=== PATIENT | female | born 1995 | race Caucasian/White ===

== ENCOUNTER 2018-02-21 13:33 | Emergency (ER) | payer OTHER ==
--- NOTE | 2018-02-21 14:04 | UC ---
General HPI - HPI Summary HPI Summary: 1. pain in R jaw when bites down. admits to associated popping and clicking. no tooth pain. 2. hx migraines, notes having more frequent migraines but no headache at this time. tx with excedrine migraine and advil but less relief than in past. describes headaches as blurry vision, nausea/vomiting with light and noise sensitivity. no abrupt or worst GOMES's ever. no associated injury or fever. 3. requesting std testing. states not tested in a while. having vaginal odor. prior hx BV and this seems the same. no fever, abdominal pain. - History of Current Complaint Stated Complaint: JAW PAIN, HEADACHE, PERSONAL Time Seen by Provider: 02/21/18 13:56 Hx Obtained From: Patient Associated Signs & Symptoms: Negative: Abdominal Pain, Dysuria, Fever - Allergy/Home Medications Allergies/Adverse Reactions: Allergies Allergy/AdvReac Type Severity Reaction Status Date / Time No Known Allergies Allergy Verified 02/21/18 14:21 Home Medications: Home Medications Citalopram TAB* [CeleXA TAB*] 10 mg PO DAILY 02/21/18 [History Confirmed ] Levothyroxine TAB* [Synthroid TAB*] 50 mcg PO DAILY 02/21/18 [History Confirmed 02/21/18] PMH/Surg Hx/FS Hx/Imm Hx - Additional Past Medical History Additional PMH: anemia, hypothyroid, vitiligo, PCOS, depression. - Family History Known Family History: Positive: None - Social History Occupation: Student Lives: Dormitory/Roommates - Immunization History Vaccination Up to Date: Yes Review of Systems Constitutional: Negative Skin: Negative Eyes: Negative ENT: Negative Respiratory: Negative Cardiovascular: Negative Gastrointestinal: Negative Genitourinary: Vaginal/Penile Discharge Motor: Negative Neurovascular: Negative Musculoskeletal: Negative Neurological: Headache Psychological: Negative Is Patient Immunocompromised?: No All Other Systems Reviewed And Are Negative: Yes Physical Exam Triage Information Reviewed: Yes Appearance: Well-Appearing Vital Signs Reviewed: Yes Eyes: Positive: Conjunctiva Clear ENT: Positive: Pharynx normal, TMs normal. Negative: Nasal congestion, Nasal drainage Dental: Positive: Other: - Tender to palpation over R TMJ. Negative: Percussion Tenderness @, Gross Decay/Caries @, Abscess @ Neck: Positive: Supple, Nontender, No Lymphadenopathy Respiratory: Positive: Lungs clear, Normal breath sounds Cardiovascular: Positive: RRR, No Murmur Abdomen Description: Positive: Nontender, No Organomegaly, Soft Bowel Sounds: Positive: Present Pelvic Exam: Positive: Other - Declined by pt, wants presumptive tx for BV. Musculoskeletal: Positive: ROM Intact Neurological: Positive: Other: - A&O x 3. cn 2-12 grossly intact. 5/5 strength and 2+ reflexes x4. sensation intact x4. steady gait. Psychological: Positive: Age Appropriate Behavior Skin Exam: Normal Diagnostics - Laboratory Diagnostic Studies Completed/Ordered: urine GC/chlamydia and syphilis testing all pending Course/Dx - Course Course Of Treatment: pt declined pelvic exam thus will test urine for GC/ Chlamydia. will tx presumptively for BV. GOMES's c/w pt's typical migraine but no GOMES now. pt encouraged to f/u with her pcp on upcoming break to discuss additional tx options for her migraines. 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 - Differential Dx - Multi-Symptom Provider Diagnoses: 1. TMJ syndrom 2. migraine hx 3. vaginitis Discharge - Sign-Out/Discharge Documenting (check all that apply): Patient Departure All imaging exams completed and their final reports reviewed: No Studies - Discharge Plan Condition: Stable Disposition: HOME Prescriptions: metroNIDAZOLE [Flagyl] 500 mg PO BID 7 Days #14 tablet Naproxen [Naprosyn 500 mg tab] 500 mg PO BID 5 Days #10 tablet Patient Education Materials: Temporomandibular Disorder (ED), Migraine Headache (ED), Bacterial Vaginosis (ED) Referrals: [facility] [Outside] - 7 Days Additional Instructions: follow up with [facility] if vaginal symptoms not improved in 1 week or immediately for any worsening. follow up with primary care at home([facility] during break to discussed migraine tx options - Billing Disposition and Condition Condition: STABLE Disposition: Home
[2018-02-21 14:21] VITALS: BP 117/80
--- NOTE | 2018-02-23 07:10 | UC ---
- Progress Note Progress Note: neg gc/ch neg syphillis no change ljj 02/23/2018 Discharge - Sign-Out/Discharge Documenting (check all that apply): Post-Discharge Follow Up All imaging exams completed and their final reports reviewed: No Studies - Discharge Plan Condition: Stable Disposition: HOME Prescriptions: metroNIDAZOLE [Flagyl] 500 mg PO BID 7 Days #14 tablet Naproxen [Naprosyn 500 mg tab] 500 mg PO BID 5 Days #10 tablet Patient Education Materials: Bacterial Vaginosis (ED), Migraine Headache (ED), Temporomandibular Disorder (ED) Referrals: [facility] [Outside] - 7 Days Additional Instructions: follow up with [facility] if vaginal symptoms not improved in 1 week or immediately for any worsening. follow up with primary care at home([facility] during break to discussed migraine tx options - Billing Disposition and Condition Condition: STABLE Disposition: Home
== END 2018-02-21 14:50 | disposition home or self-care (01) ==
LOC: UCCORT 13:33
DX: M26.601 Right temporomandibular joint disorder, unspecified (principal); N76.0 Acute vaginitis; E03.9 Hypothyroidism, unspecified; Z86.69 Personal history of other diseases of the nervous system and sense organs; Z79.899 Other long term (current) drug therapy
CPT/HCPCS: 36415; 86592; 87491; 87591; 99202; G0463

== ENCOUNTER 2018-03-23 14:57 | Emergency (ER) | payer BC, OTHER ==
[2018-03-23 15:16] VITALS: BP 108/57
--- NOTE | 2018-03-23 15:33 | UC ---
Respiratory Complaint HPI - HPI Summary HPI Summary: per assisted living associate "sx started 1 week ago--nausea, chest congestion, coughing a lot, feels short of breath, tired, sore throat, headaches" -she has menses now, denies . has been sleeping a lot. -has had mono in past -has had tonsillectomy -no asthma, no wheezing. -has had sick contacts w/ strep, but no known flu. -she has hypothyroid and takes her meds regularly. states that she gets her labs checked regularly as well. -she is from [place] and goes to college at [employer]. - History of Current Complaint Chief Complaint: UCGI Stated Complaint: FATIGUE, DIZZINESS X 1 WEEK Time Seen by Provider: 03/23/18 15:32 Hx Last Menstrual Period: 03/18/18 Pain Intensity: 4 - Allergies/Home Medications Allergies/Adverse Reactions: Allergies Allergy/AdvReac Type Severity Reaction Status Date / Time No Known Allergies Allergy Verified 03/23/18 15:15 PMH/Surg Hx/FS Hx/Imm Hx Endocrine History: Thyroid Disease - Surgical History Surgical History: Yes Surgery Procedure, Year, and Place: T&A - Family History Known Family History: Positive: None - Social History Alcohol Use: Weekly Alcohol Amount: once week Substance Use Type: None Smoking Status (MU): Never Smoked Tobacco Type: eCigarettes - Immunization History Vaccination Up to Date: Yes Review of Systems All Other Systems Reviewed And Are Negative: Yes Constitutional: Positive: Fever Skin: Positive: Negative Eyes: Positive: Negative ENT: Positive: Sore Throat Respiratory: Positive: Cough Cardiovascular: Positive: Negative Gastrointestinal: Positive: Negative Genitourinary: Positive: Negative Motor: Positive: Negative Neurovascular: Positive: Negative Musculoskeletal: Positive: Negative, Other: - no swelling of joints Neurological: Positive: Negative Psychological: Positive: Negative Is Patient Immunocompromised?: No Physical Exam Triage Information Reviewed: Yes Appearance: Well-Appearing, No Pain Distress, Well-Nourished Vital Signs: Initial Vital Signs Temp 98.3 F 03/23/18 15:12 Pulse 74 03/23/18 15:12 Resp 16 03/23/18 15:12 BP 108/57 03/23/18 15:12 Pulse Ox 100 03/23/18 15:12 Vital Signs Reviewed: Yes Eye Exam: Normal ENT Exam: Normal ENT: Positive: Pharyngeal erythema - no exudate. tonsils surgically absent., TMs normal, Uvula midline. Negative: Sinus tenderness Dental Exam: Normal Neck exam: Normal Neck: Positive: Supple, Nontender, No Lymphadenopathy Respiratory Exam: Normal Respiratory: Positive: Lungs clear, Normal breath sounds, No respiratory distress, No accessory muscle use. Negative: Crackles, Rhonchi, Stridor, Wheezing Cardiovascular Exam: Normal Cardiovascular: Positive: RRR, No Murmur, Pulses Normal Abdomen Description: Positive: Nontender, Soft Musculoskeletal Exam: Normal Neurological Exam: Normal Psychological Exam: Normal Skin Exam: Normal UC Diagnostic Evaluation - Laboratory O2 Sat by Pulse Oximetry: 100 Respiratory Course/Dx - Course Course Of Treatment: rapid strep neg. influenza neg. -viral syndrome. nsaids, rest, fluids. -f/u with pcp on break in [place]. - Differential Dx/Diagnosis Differential Diagnosis/HQI/PQRI: Asthma, Bronchitis, Influenza, Laryngitis, Sinusitis Provider Diagnosis: Viral syndrome Discharge - Sign-Out/Discharge Documenting (check all that apply): Patient Departure All imaging exams completed and their final reports reviewed: No Studies - Discharge Plan Condition: Stable Disposition: HOME Patient Education Materials: Viral Syndrome (ED) Referrals: No Primary Care Phys,NOPCP [Primary Care Provider] - Additional Instructions: Strep and influneza swabs were both negative. there is no evidence for any bacterial infection. Increase fluids and get plenty of rest. Advil or tylenol can be helpful for body aches. Follow up with your PCP at home over your break. - Billing Disposition and Condition Condition: STABLE Disposition: Home
== END 2018-03-23 16:16 | disposition home or self-care (01) ==
LOC: UCCORT 14:57
DX: B34.9 Viral infection, unspecified (principal)
CPT/HCPCS: 87651; 99211; G0463

== ENCOUNTER 2018-06-13 11:29 | Emergency (ER) | payer BC ==
[2018-06-13 12:16] VITALS: BP 101/74
[2018-06-13] MEDS ORDERED: predniSONE TAB* 20 MG PO ONE (12:49)
[2018-06-13] MEDS ORDERED: Albuterol/Ipratropium NEB.SOL* Albuterol 2.5 MG/Ipratropium 0.5 MG 3 ML INH ONE (12:50)
--- NOTE | 2018-06-13 12:58 | ED ---
Respiratory - HPI Summary HPI Summary: 22 yr old female with the complaint of runny nose, post nasal drip, coughing, and now some SOB with coughing episodes for the past two days. She has a family history of asthma. She has no CP. She has no dizziness. - History of Current Complaint Chief Complaint: UCRespiratory Stated Complaint: COUGH Time Seen by Provider: 06/13/18 12:44 Pain Intensity: 8 - Allergy/Home Medications Allergies/Adverse Reactions: Allergies Allergy/AdvReac Type Severity Reaction Status Date / Time No Known Allergies Allergy Verified 06/13/18 12:10 Home Medications: Home Medications D-Methorphan/PE/Acetaminophen [Daytime Cold-Flu Liquid] 237 ml PO BID PRN [History Confirmed 06/13/18] PMH/Surg Hx/FS Hx/Imm Hx Endocrine/Hematology History: Reports: Hx Thyroid Disease - hypothyroidism - Surgical History Surgery Procedure, Year, and Place: T&A Infectious Disease History: No Infectious Disease History: Denies: Traveled Outside the [place] in Last 30 Days - Family History Known Family History: Positive: None - Social History Alcohol Use: Weekly Alcohol Amount: once week Substance Use Type: Reports: None Smoking Status (MU): Never Smoked Tobacco Type: eCigarettes Review of Systems Positive: Chills Positive: Sore Throat, Nasal Discharge Positive: Shortness Of Breath, Cough All Other Systems Reviewed And Are Negative: Yes Physical Exam Triage Information Reviewed: Yes Vital Signs On Initial Exam: Initial Vitals Temp Pulse Resp BP Pulse Ox 98.5 F 100 18 101/74 100 06/13/18 12:11 06/13/18 12:11 06/13/18 12:11 06/13/18 12:11 06/13/18 12:11 Vital Signs Reviewed: Yes Appearance: Positive: Well-Appearing, No Pain Distress Skin: Positive: Warm, Skin Color Reflects Adequate Perfusion Head/Face: Positive: Normal Head/Face Inspection Eyes: Positive: EOMI ENT: Positive: Pharynx normal, Nasal congestion, Nasal drainage, TMs normal, Sinus tenderness Neck: Positive: Nontender Respiratory/Lung Sounds: Positive: Breath Sounds Present, Wheezes. Negative: Stridor Cardiovascular: Positive: RRR. Negative: Murmur Abdomen Description: Negative: Distended Musculoskeletal: Positive: Strength/ROM Intact Neurological: Positive: Sensory/Motor Intact, Alert, Oriented to Person Place, Time, CN Intact II-III, Normal Gait, Speech Normal Psychiatric: Positive: Normal Diagnostics - Vital Signs Vital Signs Temp Pulse Resp BP Pulse Ox 06/13/18 12:11 98.5 F 100 18 101/74 100 - Laboratory Lab Statement: Any lab studies that have been ordered have been reviewed, and results considered in the medical decision making process. Re-Evaluation - Re-Evaluation First Eval Re-Evaluation Time: 13:56 Change: Improved Comment: Lungs are CLear, and she is moving air well. Coughing is better. Disposition - Course Course Of Treatment: 22 yr old female with coughing. sinusitis and asthmatic bronchitis. Rx augmentin, prednisone and albuterol mdi - Diagnoses Provider Diagnoses: Sinusitis, Asthmatic bronchitis Discharge - Sign-Out/Discharge Documenting (check all that apply): Patient Departure All imaging exams completed and their final reports reviewed: Yes - Discharge Plan Condition: Good Disposition: HOME Prescriptions: Albuterol HFA INHALER* [Ventolin HFA Inhaler*] 1 - 2 puff INH Q6H PRN #1 mdi PRN Reason: Cough Amoxicillin/Clavulanate TAB* [Augmentin TAB 875*] 875 mg PO BID #20 tab Benzonatate CAP* [Tessalon 100 MG CAP*] 100 mg PO TID #14 cap predniSONE TAB* [Deltasone 20 MG TAB*] 40 mg PO DAILY #8 tab Patient Education Materials: Sinusitis (ED), Bronchospasm (ED), Wheezing (ED) Forms: *School Release Referrals: No Primary Care Phys,NOPCP [Primary Care Provider] - [facility] [Outside] [facility] [Outside] - Billing Disposition and Condition Condition: GOOD Disposition: Home
[2018-06-13] MEDS ORDERED: Albuterol 2.5 MG/3 ML NEB.SOL* (0.083%) INH ONE (13:30)
== END 2018-06-13 14:10 | disposition home or self-care (01) ==
LOC: UCCORT 11:29
DX: J32.9 Chronic sinusitis, unspecified (principal); J45.909 Unspecified asthma, uncomplicated; Z82.5 Family history of asthma and other chronic lower respiratory diseases
CPT/HCPCS: 71046; 99213; A9270-GY; G0463; J7512